=== PATIENT | male | born 1980 | race Caucasian/White ===

== ENCOUNTER 2020-02-16 14:53 | Emergency (ER) | payer OTHER ==
[~2020-02-16] VITALS: Ht 165.1 cm; Wt 62.1 kg
[2020-02-16 15:14] VITALS: BP 137/86; Ht 165.1 cm; Wt 62.1 kg
== END 2020-02-16 17:21 | disposition home or self-care (01) ==
LOC: ED 14:53
DX: S61.012A Laceration without foreign body of left thumb without damage to nail, initial encounter (principal); W45.8XXA Other foreign body or object entering through skin, initial encounter; Y93.89 Activity, other specified; Y92.89 Other specified places as the place of occurrence of the external cause; Y99.8 Other external cause status
CPT/HCPCS: 90715; J2001